=== PATIENT | male | born 1995 | race Caucasian/White ===

== ENCOUNTER 2016-12-01 19:58 | Emergency (ER) | payer SELFPAY ==
[2016-12-01] MEDS ORDERED: IBUPROFEN 600 MG TABLET PO ONE (20:51)
--- NOTE | 2016-12-01 21:08 | ER Document Report ---
ED Hand/Wrist Injury - General Mode of Arrival: Ambulatory Information source: Patient TRAVEL OUTSIDE OF THE [place] IN LAST 30 DAYS: No - General Chief Complaint: Finger Injury Stated Complaint: HAND PAIN Time Seen by Provider: 12/01/16 20:36 Notes: Patient is a 21-year-old male that presents to the emergency department today with complaints of right index finger pain. Patient states he hurt this finger playing basketball approximately 2 years ago. Patient states he "hit it wrong on a trash can" last night at work. Patient states his finger has not swelled to his knowledge. (LOLIS LLAMAS) - Related Data Allergies/Adverse Reactions: amoxicillin [Amoxicillin] Allergy (Verified 03/08/15 20:35) Past Medical History - General Information source: Patient - Social History Smoking Status: Never Smoker Cigarette use (# per day): No Frequency of alcohol use: None Drug Abuse: None Lives with: Family Family History: Reviewed & Not Pertinent Patient has suicidal ideation: No Patient has homicidal ideation: No Pulmonary Medical History: Reports: Hx Asthma Surgical Hx: Negative - Immunizations Hx Diphtheria, Pertussis, Tetanus Vaccination: Yes Review of Systems - Review of Systems Constitutional: No symptoms reported EENT: No symptoms reported Cardiovascular: No symptoms reported Respiratory: No symptoms reported Gastrointestinal: No symptoms reported Genitourinary: No symptoms reported Male Genitourinary: No symptoms reported Musculoskeletal: See HPI, Other - right index finger pain Skin: No symptoms reported Hematologic/Lymphatic: No symptoms reported Neurological/Psychological: No symptoms reported -: Yes All other systems reviewed and negative Physical Exam - Vital signs Vitals: Temp Pulse Resp BP Pulse Ox 99 F 65 20 162/77 H 100 12/01/16 20:08 12/01/16 20:08 12/01/16 20:08 12/01/16 20:08 12/01/16 20:08 - Notes Notes: Physical Exam: General: Alert, appears well. HEENT: Normocephalic. Atraumatic. PERRLA. Extraocular movements intact. Oropharynx clear. Neck: Supple. Respiratory: No respiratory distress. Abdominal: Normal Inspection. No distension. Extremities: Pain in the MCP joint of right index finger. No obvious deformity. Neurological: Cranial nerves II-XII grossly intact bilaterally. Normal cognition. AAOx4. Normal speech. Psychological: Normal affect. Normal Mood. Skin: Warm. Dry. Normal color. (FREDDY LLAMASON) Course - Re-evaluation Re-evalutation: 12/02/16 03:33 Patient presents emergency department with index finger pain. He says it has bothered him for about the past 2 years since he got it stoved playing basketball. He has not seen anyone for it he said the past 2 days he thinks he injured it again. He describes pain at the MCP joint of the index finger no definitive injury no deformity. He has never had trauma or surgery to the area before. On examination well-appearing nontoxic mild tenderness at the index finger MCP joint but no obvious swelling or deformity full range of motion with no ligamentous instability or signs of infection. X-ray negative for acute fracture splint ice elevation Tylenol Motrin give him a family doctor for follow -up referral to orthopedics if necessary and discussed reasons for ED return sooner (WILFREDO COUGHLIN) - Vital Signs Vital signs: Temp Pulse Resp BP Pulse Ox 97.9 F 59 L 17 138/62 H 100 12/01/16 22:20 12/01/16 22:20 12/01/16 22:20 12/01/16 22:20 12/01/16 22:20 Discharge - Discharge Clinical Impression: Acute right index finger sprain Condition: Stable Disposition: HOME, SELF-CARE Additional Instructions: Sprained Finger You have a finger sprain. A sprain is an over-stretching or tearing of the ligaments which guard the joints. The injury may require a few weeks of protection while it heals. The usual treatment for a finger sprain is a splint, ice packs, and elevation. As pain and swelling decrease, cautious use of the finger is allowed. Often the injured finger is taped to an uninjured finger to provide a "moving splint" during the later healing. Complete recovery takes about three or four weeks. Your physician has assessed the seriousness of the ligament injury in your finger, and has outlined the initial treatment plan. Understand that this treatment may change, depending on how your finger progresses. If further exams were recommended, it is important that you follow up as instructed. Call the doctor at any time if there is severe pain, increasing swelling, or numbness in the finger. Prescriptions: Ibuprofen [Motrin 600 Mg Tablet] 600 mg PO TID #15 tablet Forms: Return to Work Referrals: [facility] [Provider Group] - Follow up in 3-5 days Scribe Attestation: 12/01/16 21:53 12/01/16 21:53 I personally performed the services described in the documentation reviewed the documentation recorded by my scribe in my presence and it accurately and completely records my words and actions (WILFREDO COUGHLIN) Scribe Documentation - Scribe Written by Natasha:: Natasha López, 12/02/2016 0246 acting as scribe for :: Drake
--- NOTE | 2016-12-01 21:21 | RADIOLOGY REPORT (SQ) ---
EXAM DESCRIPTION: HAND RIGHT 3 VIEWS COMPLETED DATE/TIME: 12/01/2016 9:11 pm REASON FOR STUDY: injury pain right index finger COMPARISON: None. EXAM PARAMETERS: NUMBER OF VIEWS: Three views. TECHNIQUE: AP, lateral and oblique radiographic images acquired of the right hand. LIMITATIONS: None. FINDINGS: MINERALIZATION: Normal. BONES: No acute fracture or dislocation. No worrisome bone lesions. JOINTS: No effusions. SOFT TISSUES: No soft tissue swelling. No foreign body. OTHER: No other significant finding. IMPRESSION: NEGATIVE STUDY OF THE RIGHT HAND. NO RADIOGRAPHIC EVIDENCE OF ACUTE INJURY. TECHNICAL DOCUMENTATION: JOB ID: [id number] [employer]- All Rights Reserved
[2016-12-01 22:25] VITALS: BP 138/62
== END 2016-12-01 22:24 | disposition home or self-care (01) ==
LOC: ER 19:58
DX: S63.610A Unspecified sprain of right index finger, initial encounter (principal); X58.XXXA Exposure to other specified factors, initial encounter; Y93.67 Activity, basketball
CPT/HCPCS: 99283

== ENCOUNTER 2017-03-16 17:38 | Emergency (ER) | payer SELFPAY ==
--- NOTE | 2017-03-16 18:48 | ER Document Report ---
ED Medical Screen (RME) - General Chief Complaint: Abdominal Pain Stated Complaint: STOMACH PAIN Time Seen by Provider: 03/16/17 18:47 Notes: Patient says that he is having problems with his stomach since this morning. It hurts in the mid upper abdomen. Has not had any vomiting or diarrhea. Has not noted any fever. No history of abdominal surgeries. No history of any medical problems. Patient does not appear to be in any distress or any pain at all. His abdomen is soft and nontender anywhere. TRAVEL OUTSIDE OF THE [place] IN LAST 30 DAYS: No - Related Data Allergies/Adverse Reactions: amoxicillin [Amoxicillin] Allergy (Verified 03/16/17 17:48) Home Medications: Current Home Medications No Home Medications 03/16/17 [History] Past Medical History - Social History Chew tobacco use (# tins/day): No Frequency of alcohol use: None Drug Abuse: None Pulmonary Medical History: Reports: Hx Asthma Renal/ Medical History: Denies: Hx Peritoneal Dialysis - Immunizations Hx Diphtheria, Pertussis, Tetanus Vaccination: Yes Physical Exam - Vital signs Vitals: Temp Pulse Resp BP Pulse Ox 98.8 F 64 18 151/64 H 98 03/16/17 17:49 03/16/17 17:49 03/16/17 17:49 03/16/17 17:49 03/16/17 17:49 Course - Vital Signs Vital signs: Temp Pulse Resp BP Pulse Ox 98.8 F 64 18 151/64 H 98 03/16/17 17:49 03/16/17 17:49 03/16/17 17:49 03/16/17 17:49 03/16/17 17:49
[2017-03-16 19:21] LABS: ABSOLUTE BASOPHILS # (AUTO) 0.1 10^3/uL (0.0-0.2); ABSOLUTE EOSINOPHILS # (AUTO) 0.6 10^3/uL (0.0-0.6); ABSOLUTE LYMPHOCYTES (AUTO) 2.4 10^3/uL (0.5-4.7); ABSOLUTE MONOCYTES (AUTO) 0.6 10^3/uL (0.1-1.4); ABSOLUTE NEUT (AUTO) 2.7 10^3/uL (1.7-8.2); BASOPHILS % (AUTO) 0.9 % (0-2); EOSINOPHILS % (AUTO) 9.3 % (0-6); HEMATOCRIT 42.6 % (37.9-51.0); HEMOGLOBIN 14.5 g/dL (13.5-17.0); HGB HCT DIFFERENCE 0.9; LYMPHOCYTES % (AUTO) 37.7 % (13-45); MEAN CORPUSCULAR HEMOGLOBIN 29.4 pg (27.0-33.4); MEAN CORPUSCULAR VOLUME 86 fl (80-97); MONOCYTES % (AUTO) 9.6 % (3-13); RED BLOOD COUNT 4.93 10^6/uL (4.35-5.55); RED CELL DISTRIBUTION WIDTH 13.9 % (11.5-14.0); SEGMENTED NEUTROPHILS % (AUTO) 42.5 % (42-78); WHITE BLOOD COUNT 6.3 10^3/uL (4.0-10.5)
--- NOTE | 2017-03-16 19:30 | ER Document Report ---
ED General - General Chief Complaint: Abdominal Pain Stated Complaint: STOMACH PAIN Time Seen by Provider: 03/16/17 18:47 TRAVEL OUTSIDE OF THE [place] IN LAST 30 DAYS: No - HPI Notes: Patient is a 21-year-old male with no significant past medical history presents ED complaining of intermittent abdominal cramping over the last 1-2 days. Patient states that most of his cramping is near his epigastrium and does not radiate. Patient denies any sharp or burning pains. Patient states that his last bowel movement was on Sunday, 4 days ago, and was hard and small. Patient states that he has had a decreased appetite as he feels full quicker. Patient states that he is still urinating normally otherwise. He denies any recent illness. Denies any abdominal surgeries. Denies any IV drug use. Denies any headache, fever, URI, sore throat, chest pain, palpitations, syncope, cough, shortness of breath, wheeze, dyspnea, nausea/vomiting/diarrhea, urinary retention, dysuria, hematuria, back pain, loss of control of bowel or bladder, numbness/tingling, saddle anesthesia, muscle paralysis/weakness, or rash. - Related Data Allergies/Adverse Reactions: amoxicillin [Amoxicillin] Allergy (Verified 03/16/17 17:48) Past Medical History - Social History Smoking Status: Never Smoker Chew tobacco use (# tins/day): No Frequency of alcohol use: None Drug Abuse: None Family History: Reviewed & Not Pertinent Patient has suicidal ideation: No Patient has homicidal ideation: No Pulmonary Medical History: Reports: Hx Asthma Renal/ Medical History: Denies: Hx Peritoneal Dialysis - Immunizations Hx Diphtheria, Pertussis, Tetanus Vaccination: Yes Review of Systems - Review of Systems Notes: REVIEW OF SYSTEMS: CONSTITUTIONAL : Denies fever, chills, or sweats. Denies recent illness. EENT: Denies eye, ear, throat, or mouth pain or symptoms. Denies nasal or sinus congestion or discharge. Denies throat, tongue, or mouth swelling or difficulty swallowing. CARDIOVASCULAR: Denies chest pain. Denies palpitations or racing or irregular heart beat. Denies ankle edema. RESPIRATORY: Denies cough, cold, or chest congestion. Denies shortness of breath, difficulty breathing, or wheezing. GASTROINTESTINAL: see hpi. no melena, hematochezia. GENITOURINARY: Denies difficulty urinating, painful urination, burning, frequency, blood in urine, or discharge. MUSCULOSKELETAL: Denies back or neck pain or stiffness. Denies joint pain or swelling. SKIN: Denies rash, lesions or sores. NEUROLOGICAL: Denies confusion or altered mental status. Denies passing out or loss of consciousness. Denies dizziness or lightheadedness. Denies headache. Denies weakness or paralysis or loss of use of either side. Denies problems with gait or speech. Denies sensory loss, numbness, or tingling. Denies seizures. ALL OTHER SYSTEMS REVIEWED AND NEGATIVE. Dictation was performed using [employer] voice recognition software Physical Exam - Vital signs Vitals: Temp Pulse Resp BP Pulse Ox 98.8 F 64 18 151/64 H 98 03/16/17 17:49 03/16/17 17:49 03/16/17 17:49 03/16/17 17:49 03/16/17 17:49 Notes: PHYSICAL EXAMINATION: GENERAL: Well-appearing, well-nourished and in no acute distress. A&Ox4 HEAD: Atraumatic, normocephalic. EYES: Pupils equal round and reactive to light, extraocular movements intact, sclera anicteric, conjunctiva are normal. ENT: Nares patent and without discharge. oropharynx clear without exudates. No tonsilar hypertrophy or erythema. Moist mucous membranes. NECK: Normal range of motion, supple without lymphadenopathy LUNGS: Breath sounds clear to auscultation bilaterally and equal. No wheezes rales or rhonchi. HEART: Regular rate and rhythm without murmurs, rubs, gallops. ABDOMEN: Soft, nondistended abdomen. No guarding, no rebound. No masses appreciated. Normal bowel sounds present. No CVA tenderness bilaterally. + very mild tenderness to the epigastrum. Musculoskeletal: FROM to passive/active. Strength 5+/5. Extremities: No cyanosis, clubbing, or edema b/l. Peripheral pulses 2+. Capillary refill less than 3 seconds. NEUROLOGICAL: Normal speech, normal gait. Normal sensory, motor exams PSYCH: Normal mood, normal affect. SKIN: Warm, Dry, normal turgor, no rashes or lesions noted. Course - Re-evaluation Re-evalutation: 03/16/17 20:42 Patient is an afebrile, well-hydrated, 21-year-old male who presents the ED with constipation. Patient did show leuks in his urine so a dirty urine is pending. Vitals are stable. PE is otherwise unremarkable. Rocephin and Zithromax were given today. Chest x-ray was unremarkable for any acute pathology. Acute abdomen series showed abundant amount of stool present. Patient declined any laxative or enema in the ED today and would like to be discharged. Risks and benefits are understood. I will send him home with a prescription for mag citrate. Low suspicion/risk for acute appendicitis, bowel obstruction, acute cholecystitis, perforated diverticulitis, incarcerated hernia , pancreatitis, perforated ulcer, peritonitis, sepsis, testicular torsion, or other systemic emergent condition at this time. Patient is aware that his condition can change from initial presentation and he needs to monitor symptoms closely and seek medical attention if any acute changes. Conservative measures otherwise for symptoms. Recheck with PCM in 3-5 days. Consider consult with a paint and table edger. Return to the ED with any worsening/concerning symptoms otherwise as reviewed in discharge. Patient is in agreement. - Vital Signs Vital signs: Temp Pulse Resp BP Pulse Ox 98.8 F 64 18 151/64 H 98 03/16/17 17:49 03/16/17 17:49 03/16/17 17:49 03/16/17 17:49 03/16/17 17:49 - Laboratory Result Diagrams: 03/16/17 19:08 03/16/17 19:08 Laboratory results interpreted by me: 03/16/17 03/16/17 19:08 19:08 Eosinophils % 9.3 H Urine Urobilinogen 4.0 H Ur Leukocyte Esterase SMALL H Discharge - Discharge Clinical Impression: Constipation Qualifiers: Constipation type: unspecified constipation type Qualified Code(s): K59.00 - Constipation, unspecified Condition: Stable Disposition: HOME, SELF-CARE Instructions: Abdominal Pain ([facility]), Constipation ([facility]), Stool Softener ([facility]) Additional Instructions: Maintain adequate fluid and food intake Childress diet ([facility] Bananas, rice, apples, toast, etc Take laxative as directed tylenol if needed Monitor for any worsening symptoms Your chlamydia and gonorrhea test are pending. Results will be available tomorrow if you would like to call at that time. Consider consult with the Health Department for further testing if warranted Safe sexual practices with condoms every time Make sure you are staying hydrated enough to urinate and have normal BM's Recheck with your PCM in 3-5 days Consider consult with Gastroenterology for ongoing/worsening symptoms Return to the ED with any worsening symptoms and/or development of fever, headache, chest pain, palpitations, syncope, shortness of breath, trouble breathing, abdominal pain, n/v/d, blood in stool/urine, weakness, or other worsening symptoms that are concerning to you. Prescriptions: Magnesium Citrate [Citrate of Magnesia 296 ml Bottle] 296 ml PO ONCE PRN #1 bottle PRN Reason: Forms: Elevated Blood Pressure Referrals: HEALTH DEPT,[facility] [NO LOCAL MD] - Follow up as needed LIZET GALLAGHER MD [ACTIVE STAFF] - Follow up as needed
[2017-03-16 19:33] LABS: APPEARANCE,URINE SLIGHTLY-CLOUDY; BILIRUBIN,URINE NEGATIVE (NEGATIVE); GLUCOSE, URINE NEGATIVE (NEGATIVE); KETONES,URINE NEGATIVE (NEGATIVE); LEUKOCYTE ESTERASE,URINE SMALL (NEGATIVE); NITRITE,URINE NEGATIVE (NEGATIVE); PROTEIN,URINE NEGATIVE (NEGATIVE); URINE SPECIFIC GRAVITY 1.021
[2017-03-16 19:39] LABS: ALANINE AMINOTRANSFERASE 30 U/L (21-72); ALBUMIN 4.5 g/dL (3.5-5.0); ALKALINE PHOSPHATASE 51 U/L (38-126); ANION GAP 12 (5-19); ASPARTATE AMINO TRANSFERASE 20 U/L (17-59); BILIRUBIN,DIRECT 0.3 mg/dL (0.0-0.4); BILIRUBIN,TOTAL 0.4 mg/dL (0.2-1.3); BLOOD UREA NITROGEN 13 mg/dL (7-20); CALCIUM 9.5 mg/dL (8.4-10.2); CARBON DIOXIDE 29 mmol/L (22-30); CHLORIDE 103 mmol/L (98-107); CREATININE RESULT 1.03 mg/dL (0.52-1.25); GLUCOSE 80 mg/dL (75-110); LIPASE 101.7 U/L (23-300)
[2017-03-16] MEDS ORDERED: CEFTRIAXONE INJ 250 MG VIAL IM ONE (19:52)
[2017-03-16] MEDS ORDERED: AZITHROMYCIN 250 MG TABLET PO ONE (19:52)
[2017-03-16] MEDS ORDERED: MINERAL OIL 30 ML UDCUP PR ONE (19:56)
--- NOTE | 2017-03-16 20:06 | RADIOLOGY REPORT (SQ) ---
EXAM DESCRIPTION: CHEST PA/LAT COMPLETED DATE/TIME: 03/16/2017 7:42 pm REASON FOR STUDY: epigastric pain COMPARISON: None. EXAM PARAMETERS: NUMBER OF VIEWS: two views TECHNIQUE: Digital Frontal and Lateral radiographic views of the chest acquired. RADIATION DOSE: NA LIMITATIONS: none FINDINGS: LUNGS AND PLEURA: No opacities, masses or pneumothorax. No pleural effusion. MEDIASTINUM AND HILAR STRUCTURES: No masses or contour abnormalities. HEART AND VASCULAR STRUCTURES: Heart normal size. No evidence for failure. BONES: No acute findings. HARDWARE: None in the chest. OTHER: No other significant finding. IMPRESSION: NO SIGNIFICANT RADIOGRAPHIC FINDING IN THE CHEST. TECHNICAL DOCUMENTATION: JOB ID: [id number] [employer] All Rights Reserved
--- NOTE | 2017-03-16 20:07 | RADIOLOGY REPORT (SQ) ---
EXAM DESCRIPTION: ABDOMEN 2 VIEWS COMPLETED DATE/TIME: 03/16/2017 7:42 pm REASON FOR STUDY: no BM in 4 days, abd cramping COMPARISON: Chest films same date NUMBER OF VIEWS: Two views. TECHNIQUE: Supine and erect radiographic images of the abdomen acquired. LIMITATIONS: None. FINDINGS: FREE AIR: None. No abnormal gas collections. LUNG BASES: Clear. BOWEL GAS PATTERN: Stomach is distended with food and fluid. Few proximal dilated small bowel loops. Moderate stool in the ascending and transverse colon. CALCIFICATIONS: No suspicious calcifications. SOFT TISSUES: No gross mass or suggestion of organomegaly. HARDWARE: None in the abdomen. BONES: No acute fracture. No worrisome bone lesions. OTHER: No other significant finding. IMPRESSION: Nonspecific bowel gas pattern. Distended stomach and proximal small bowel. Decompresse d mid and distal small bowel, moderate stool in the colon TECHNICAL DOCUMENTATION: JOB ID: [id number] [employer]- All Rights Reserved
[2017-03-16] MEDS ORDERED: LIDOCAINE 1% INJ-PF (10 MG/ML) 30 ML SDV ONE (20:08)
[2017-03-16 21:00] VITALS: BP 133/53
[2017-03-16 21:53] LABS: CHLAM PCR NOT DETECTED (NOT DETECT)
== END 2017-03-16 21:06 | disposition home or self-care (01) ==
LOC: ER 17:38
DX: K59.00 Constipation, unspecified (principal); R10.9 Unspecified abdominal pain; Z88.0 Allergy status to penicillin
CPT/HCPCS: 99284; 96372; 36415; 83690; 85025; 80053; 81001; 87491; 87591; 74020; 71020; J3490 ×2; J0696

== ENCOUNTER 2018-06-15 10:14 | Emergency (ER) | payer OTHER ==
[2018-06-15] MEDS ORDERED: DIPH/PERTUSS(ACELL)/TETANUS VAC/PF 0.5 ML SYR (>=10YO) IM ONE (10:44)
[2018-06-15] MEDS ORDERED: LIDOCAINE 1% INJ-PF (10 MG/ML) 30 ML SDV INJ ONE (10:44)
--- NOTE | 2018-06-15 10:44 | ER Document Report ---
ED Medical Screen (RME) - General Chief Complaint: Laceration Stated Complaint: WORK INJ/FINGER LACERATION Time Seen by Provider: 06/15/18 10:37 Notes: Patient is a 23-year-old male that presents to the emergency department for chief complaint of left thumb laceration. Patient states that he went to reach to moss picker a garbage bag, he works as a chemical waste management technician, and whatever was in the bag cut through his glove and injured his left thumb over the flexor surface, patient's not sure of his last tetanus.. ROS: Other than noted above, the 12 point review of systems was reviewed with the patient and were negative, all pertinent findings are included in the HPI. PHYSICAL EXAMINATION: Vital signs reviewed. GENERAL: Well-appearing, well-nourished and in no acute distress. HEAD: Atraumatic, normocephalic. EYES: Pupils equal round extraocular movements intact, conjunctiva are normal. ENT: Nares patent NECK: Normal range of motion CV: Heart regular rate and rhythm LUNGS: No respiratory distress Musculoskeletal: There is a 1-1/2-2 cm laceration across the flexor surface of the thumb just proximal to the IP joint, patient has significant pain with attempts at flexion. Tendon not able to be visualized currently on this exam NEUROLOGICAL: Normal speech PSYCH: Normal mood, normal affect. MDM: Patient seen and examined for rapid initial assessment. Vital signs reviewed. A comprehensive ED assessment and evaluation of the patient, analysis of test results and completion of the medical decision making process will be conducted by additional ED providers. *Note is created using voice recognition software and may contain spelling, syntax or grammatical errors. TRAVEL OUTSIDE OF THE [place] IN LAST 30 DAYS: No - Related Data Allergies/Adverse Reactions: amoxicillin [Amoxicillin] Allergy (Verified 03/16/17 17:48) Past Medical History - Social History Chew tobacco use (# tins/day): No Frequency of alcohol use: None Drug Abuse: None Pulmonary Medical History: Reports: Hx Asthma Renal/ Medical History: Denies: Hx Peritoneal Dialysis - Immunizations Hx Diphtheria, Pertussis, Tetanus Vaccination: Yes Physical Exam - Vital signs Vitals: Temp Pulse Resp BP Pulse Ox 98.1 F 72 16 166/82 H 100 06/15/18 10:24 06/15/18 10:24 06/15/18 10:24 06/15/18 10:24 06/15/18 10:24 Course - Vital Signs Vital signs: Temp Pulse Resp BP Pulse Ox 98.1 F 72 16 166/82 H 100 06/15/18 10:24 06/15/18 10:24 06/15/18 10:24 06/15/18 10:24 06/15/18 10:24
[2018-06-15] MEDS ORDERED: LIDOCAINE 1% INJ-PF (10 MG/ML) 30 ML SDV ONE (11:08)
[2018-06-15] MEDS ORDERED: OXYCODONE-ACETAMINOPHEN 5-325 MG TABLET PO ONE (13:19)
[2018-06-15] MEDS ORDERED: DOXYCYCLINE HYCLATE 100 MG TABLET PO ONE (13:20)
[2018-06-15 14:15] VITALS: BP 145/73
--- NOTE | 2018-06-19 07:38 | ER Document Report ---
Entered by LOLIS LLAMAS SCRIBE 06/15/18 1255 Acting as scribe for:NICANOR PEARCE MD ED Wound - General Chief Complaint: Laceration Stated Complaint: WORK INJ/FINGER LACERATION Time Seen by Provider: 06/15/18 10:37 Primary Care Provider: [facility] ([facility] [Provider Group] - 06/17/18 (Call the office at 8 AM on Sunday morning to schedule a same-day appointment with Dr. Robles.) Mode of Arrival: Ambulatory Information source: Patient Notes: 23-year-old male who presents to the emergency department today with complaints of a laceration to his right thumb. Patient states he works for [employer] which is a [employer]. Patient states that he reached his hand into a trash bag while wearing gloves and something inside the bag sliced through his glove and cut his thumb. TRAVEL OUTSIDE OF THE [place] IN LAST 30 DAYS: No - Related Data Allergies/Adverse Reactions: amoxicillin [Amoxicillin] Allergy (Verified 03/16/17 17:48) Past Medical History - General Information source: Patient, [facility] Records - Social History Smoking Status: Never Smoker Chew tobacco use (# tins/day): No Frequency of alcohol use: None Drug Abuse: None Family History: Reviewed & Not Pertinent Patient has suicidal ideation: No Patient has homicidal ideation: No Pulmonary Medical History: Reports: Hx Asthma - Immunizations Hx Diphtheria, Pertussis, Tetanus Vaccination: Yes Review of Systems - Review of Systems Constitutional: No symptoms reported EENT: No symptoms reported Cardiovascular: No symptoms reported Respiratory: No symptoms reported Gastrointestinal: No symptoms reported Genitourinary: No symptoms reported Male Genitourinary: No symptoms reported Musculoskeletal: No symptoms reported Skin: See HPI, Other - laceration Hematologic/Lymphatic: No symptoms reported Neurological/Psychological: No symptoms reported -: Yes All other systems reviewed and negative Physical Exam - Vital signs Vitals: Temp Pulse Resp BP Pulse Ox 98.1 F 72 16 166/82 H 100 06/15/18 10:24 06/15/18 10:24 06/15/18 10:24 06/15/18 10:24 06/15/18 10:24 - Notes Notes: Physical Exam: General: Alert, appears well. HEENT: Normocephalic. Atraumatic. PERRLA. Extraocular movements intact. Oropharynx clear. Neck: Supple. Respiratory: No respiratory distress. Abdominal: Normal Inspection. No distension. Extremities: Moves all four extremities. The left volar thumb shows a 2.5 cm transverse laceration over the mid proximal phalanx. The patient is completely unable to flex at the IP joint. Distal sensation is intact. Neurological: Normal cognition. AAOx4. Normal speech. Psychological: Normal affect. Normal Mood. Skin: Laceration to right thumb, see laceration repair note. Course - Re-evaluation Re-evalutation: 06/15/18 14:54 PROCEDURE: The left thumb was scrubbed with Autumn. The left thumb was anesthetized with 6 mL's 1% lidocaine metacarpal block. The wound was irrigated with 30 mL's of normal saline via a syringe placed into the wound. The wound was closed with four 4-0 nylon sutures. The left thumb was placed in a reverse thumb spica putting the thumb MCP and IP joints into flexion. 06/15/18 15:13 The reverse thumb spica was placed on the left wrist and thumb by the PCT. It fits well and keeps the thumb joints in flexion as requested. The sling was applied, it fits well and provide some support when the patient has to be up right and is not able to lay down in place the hand on his chest for elevation. - Vital Signs Vital signs: Temp Pulse Resp BP Pulse Ox 98.5 F 73 18 145/73 H 99 06/15/18 14:14 06/15/18 14:14 06/15/18 14:14 06/15/18 14:14 06/15/18 14:14 - Consults Dr. Robles Consulted provider: follow-up in office - Call Sunday morning for an appointment on Sunday. Discharge - Discharge Clinical Impression: Thumb laceration Qualifiers: Encounter type: initial encounter Damage to nail status: without damage Foreign body presence: without foreign body Laterality: left Qualified Code(s): S61.012A - Laceration without foreign body of left thumb without damage to nail, initial encounter Flexor tendon laceration of finger with open wound Qualifiers: Encounter type: initial encounter Qualified Code(s): S56.129A - Laceration of flexor muscle, fascia and tendon of unspecified finger at forearm level, initial encounter; S61.209A - Unspecified open wound of unspecified finger without damage to nail, initial encounter High blood pressure Qualifiers: Hypertension type: essential hypertension Qualified Code(s): I10 - Essential (primary) hypertension Condition: Stable Disposition: HOME, SELF-CARE Additional Instructions: Laceration Care: Your laceration has been sutured to protect the deeper structures of the thumb until you see the orthopedic doctor on Sunday. Your evaluation shows you have probably lacerated a flexor tendon in your thumb that will need to be repaired by the orthopedic doctor. Keep the splint and wound dressing clean and dry. If any signs of infection occur (swelling, redness, increasing tenderness, red streaks, tender lumps in the armpit or groin above the laceration, or fever), see the doctor immediately. High Blood Pressure, Requiring Treatment Your blood pressure is high. This is called "hypertension." Your history and exam suggest that this is not a temporary problem. You need treatment of your blood pressure. If left untreated, high blood pressure greatly increases your risk of heart attack and stroke. Please don't ignore this problem. If you have blood pressure medicine but aren't using it regularly, start taking it again. Avoid salty foods and avoid adding salt to any of the foods you eat. Avoid diet pills, decongestants, "energizing" herbs, and other medicines that elevate blood pressure. There are many different medicines that treat blood pressure. If your medication causes unpleasant side effects, call your doctor. There are others you can try. Treating hypertension is a life-long investment in your health. Take medications as prescribed. Elevate your hand above your heart all the time. Keep the splint clean and dry. Call Dr. Robles at [facility] Sunday at 8 AM to schedule a Sunday appointment. Follow-up with a primary care provider to manage your high blood pressure. Prescriptions: Doxycycline Hyclate 100 mg PO BID #10 tablet. Lisinopril/Hydrochlorothiazide [Lisinopril-Hctz 20-12.5 mg Tab] 1 each PO DAILY #30 tablet Oxycodone HCl/Acetaminophen [Percocet 5-325 mg Tablet] 1 tab PO ASDIR PRN #12 tablet PRN Reason: Referrals: [facility] ([facility] [Provider Group] - 06/17/18 (Call the office at 8 AM on Sunday to schedule a same-day appointment with Dr. Robles.) Scribe Attestation: 06/15/18 13:44 I personally performed the services described in the documentation, reviewed and edited the documentation which was dictated to the scribe in my presence, and it accurately records my words and actions. I personally performed the services described in the documentation, reviewed and edited the documentation which was dictated to the scribe in my presence, and it accurately records my words and actions.
== END 2018-06-15 15:25 | disposition home or self-care (01) ==
LOC: ER 10:14
DX: S56.129A Laceration of flexor muscle, fascia and tendon of unspecified finger at forearm level, initial encounter (principal); S61.011A Laceration without foreign body of right thumb without damage to nail, initial encounter; W45.8XXA Other foreign body or object entering through skin, initial encounter; Y93.89 Activity, other specified; Y99.0 Civilian activity done for income or pay; J45.909 Unspecified asthma, uncomplicated
CPT/HCPCS: 90471; 90715; 99282